=== PATIENT | female | born 1995 | race Hispanic/Latino ===

== ENCOUNTER 2018-10-13 07:53 | Inpatient (IN) | payer OTHER ==
[2018-10-13] MEDS ORDERED: miSOPROStol 100 MCG TAB ONE (16:28)
[2018-10-13] MEDS ORDERED: miSOPROStol 100 MCG TAB VAG ONE (16:30)
[2018-10-13] MEDS ORDERED: METHYLERGONOVINE 0.2MG/ML AMP IM PRN (17:06)
[2018-10-13] MEDS ORDERED: CARBOPROST TROME 250 MCG/ML IM PRN (17:06)
[2018-10-13] MEDS ORDERED: Ringers Lactate 1,000 ML IV PRN (17:06)
[2018-10-13 17:25] VITALS: BMI 29.6
[2018-10-13 17:28] LABS: Urine Appearance CLOUDY; Urine Bilirubin NEGATIVE (NEG); Urine Blood NEGATIVE (NEG); Urine Color YELLOW; Urine Glucose NEGATIVE (NEG); Urine Protein 1+ (NEG); Urine Specific Gravity 1.025 (1.005-1.030); Urine Urobilinogen 0.2 mg/dL (0.2-1.0)
[2018-10-13 17:31] LABS: Absolute Lymphocytes (CBC) 1.3 K/uL (0.7-4.9); Basophils % 0.4 % (0-1.3); Hematocrit 33.3 % (36.0-45.0); Lymphocytes % 17.6 % (15.3-44.8); MPV 10.4 fL (7.6-11.3); RBC Red Blood Cell Count 4.04 M/uL (3.86-4.86)
[2018-10-13 17:41] LABS: Urine Microscopic Reflex ORDER UMIC
[2018-10-13 17:43] LABS: Urine Bacteria 20-50 /HPF (<20); Urine Culture Reflex Order REFLEXED; Urine Mucus 2+ /HPF (NONE SEEN); Urine RBC <5 /HPF (NONE SEEN)
[2018-10-13] MEDS ORDERED: OXYTOCIN/LR 20 UNIT/1,000 ML BAG IV SCH ×2 (18:00→23:00)
[2018-10-13] MEDS ORDERED: Ringers Lactate 1,000 ML IV SCH (18:00)
[2018-10-13 20:56] LABS: RPR (Rapid Plasma Reagin) NON-REACT (NON-REACT)
[2018-10-13] MEDS ORDERED: PROMETHAZINE 25 MG/ML VIAL IM PRN (22:50)
[2018-10-13] MEDS ORDERED: BUTORPHANOL 1 MG/ML INJ IV PRN (22:50)
--- NOTE | 2018-10-14 08:25 | PREOPHP ---
Date of Admission: 10/13/2018 A 23-year-old 2, para 1, 39 weeks 3 days, for Cytotec insertion. Full pre-insertion talk giv en including hyperstimulation, diarrhea, risk of complications. The patient is 1.5, almost 2 cm vert ex, -1 to -2 station. FHTs normal, reactive. Vital signs are all stable. A 25 mcg of Cytotec inser james. I feel that patient probably will respond pretty well to this full admission and labor talk giv en. MANNY/ALEXX Voice ID: [id number]
[2018-10-14] MEDS ORDERED: LIDOCAINE 1% MPF 30 ML VIAL ONE (09:16)
[2018-10-14] MEDS ORDERED: CARBOPROST TROME 250 MCG/ML IM ONE (09:16)
[2018-10-14] MEDS ORDERED: METHYLERGONOVINE 0.2MG/ML AMP IM ONE (09:16)
[2018-10-14] MEDS ORDERED: Oxycodone HCl/Acetaminophen 1 TAB TAB PO PRN ×2 (09:37)
[2018-10-14] MEDS ORDERED: DOCUSATE NA/SENNA CONC 1 TAB PO PRN (09:37)
[2018-10-14] MEDS ORDERED: DIPHENHYDRAMINE 25 MG TAB/CAP PO PRN (09:37)
[2018-10-14] MEDS ORDERED: ACETAMINOPHEN 500 MG TAB PO PRN (09:37)
[2018-10-14] MEDS ORDERED: BISACODYL 10 MG RECTAL SUPP RECT PRN (09:37)
[2018-10-14] MEDS ORDERED: OXYTOCIN/LR 20 UNIT/1,000 ML BAG IV SCH (10:00)
[2018-10-14] MEDS: IBUPROFEN 200 MG TAB PO PRN ×2 (11:40→19:06)
[2018-10-15] MEDS: IBUPROFEN 200 MG TAB PO PRN (01:06)
[2018-10-15 07:09] VITALS: BP 113/58; TEMP 96.7
--- NOTE | 2018-10-15 08:18 | PN ---
Patient is brunilda regularly, says her bag of water broke about 5-10 minutes ago. Quick check of the cervix shows 5 cm, 90% effaced, 1 layer of the membranes still bulging, ruptured with AmniHook, clear fluid. Patient states that she is going natural and appears to be doing a good job of that. An ticipate delivery sometime later this morning. Doing quite well. MANNY/ALEXX Voice ID: [id number] Report ID: [id number]
--- NOTE | 2018-10-15 08:28 | OP ---
Surgeon: Nathanael Cardoza MD A 23-year-old 2, para 1, Cytotec inserted last night x1 resulted in good labor contraction pa ttern. This morning, the patient said that she experienced spontaneous rupture of membranes at appro ximately 3.5 to 4 cm. When I checked it, she was 4 cm or more. There is still 1 layer of amnion lef t that was ruptured clear fluid. The patient used Lamaze breathing techniques. Did have Stadol 1 mg IV x1. Second stage of 15 to 20 minutes. Spontaneous vaginal delivery of an estimated 8 pounds fem tamanna. Apgars 9 and 9. Three small 1st degree lacerations to the right of the urethra on the labia mi molina, to the left of the urethra on the labia minora, and at the posterior fourchette. All sutured w ith 2-0 chromic after local infiltration. Schultze delivery of the placenta, which inspected and not ed to be intact and normal. Then, 350 cc blood loss. Rh positive. Immune to Rubella. Negative bet a strep screen. Final Diagnoses: Term uterine . Cytotec for cervical ripening, labor induction, vaginal de livery. MANNY/ALEXX Voice ID: [id number] Report ID: [id number]
--- NOTE | 2018-10-16 07:50 | DS ---
Date of Discharge: 10/15/2018 This 23-year-old 2, para 1, 39 weeks 3 days, Cytotec was inserted next morning, rupture of me mbranes, clear fluid. Patient used Lamaze breathing techniques, did have 1 dose of 1 mg of Stadol, b ut otherwise used breathing techniques. Delivered spontaneously of a 7 pound, 8 ounce female. s 9 and 10, small first-degree lacerations, all repaired with 2-0 chromic local infiltrati on. Schultze delivery of the placenta. Estimated blood loss 350 cc. Placenta inspected and noted t o be intact and normal. Rh positive, immune to Rubella. Negative beta strep screen. afe brile, ambulating and voiding. Lochia is normal. She has had her Tdap immunization during the pregn michelle. Dismissed with tramadol although she may elect to take Motrin instead. Full dismissal instruc tions given. Final Diagnoses: Term intrauterine . Cytotec for cervical ripening, labor induction, vagin al delivery. MANNY/ALEXX Voice ID: [id number] Report ID: [id number]
[2018-10-17 03:57] LABS: HBsAG Nonreactive (Nonreactive)
== END 2018-10-15 12:05 | disposition home or self-care (01) | DRG 807 ==
LOC: 2ND-WC 16:21
PROVIDERS: ADMIT Specialist; ATTEND Specialist
PROC: 3E0P7VZ Introduction of Hormone into Female Reproductive, Via Natural or Artificial Opening (ICD-10-PCS; 2018-10-13)
PROC: 10E0XZZ Delivery of Products of Conception, External Approach (ICD-10-PCS; principal; 2018-10-14)
PROC: 0HQ9XZZ Repair Perineum Skin, External Approach (ICD-10-PCS; 2018-10-14)
DX: O70.0 First degree perineal laceration during delivery (principal); Z37.0 Single live birth; Z3A.39 39 weeks gestation of pregnancy
CPT/HCPCS: 36415; 81003; 81015; 85025; 86592; 86901; 87086; 87088; 87340; J0595; J2210; J2550; J2590